=== PATIENT | female | born 1970 | race Caucasian/White ===

== ENCOUNTER 2025-07-18 11:54 | Inpatient (IN) | payer OTHER ==
[2025-07-18] VITALS (24 sets, daily range): BP systolic 117–193; BP diastolic 59–97; TEMP 97.9–98; O2SAT 91–100
[~2025-07-18] VITALS: Ht 149.9 cm; Wt 82.6 kg
[2025-07-18] MEDS ORDERED: ALBUTEROL FS 2.5 MG/3 ML VIAL.NEB ONE (12:12)
[2025-07-18] MEDS ORDERED: IPRATROPIUM NEB FS 0.5 MG/2.5 ML AMPUL.NEB ONE (12:12)
[2025-07-18] MEDS: IPRATROPIUM NEB FS 0.5 MG/2.5 ML AMPUL.NEB NEB ONE (12:28)
[2025-07-18] MEDS: ALBUTEROL FS 2.5 MG/3 ML VIAL.NEB NEB ONE (12:28)
[2025-07-18] MEDS ORDERED: NTG 50 MG/D5W250 ML BOTTL 250 ML IV ONE (12:29)
[2025-07-18] MEDS ORDERED: Magnesium 1GM/D5W 100ML PREMIX 100 ML IV ONE ×2 (12:29→13:16)
[2025-07-18 12:35] LABS: PLATELET COUNT (AUTO) 368 K/uL (150-450); RED BLOOD CELL COUNT(AUTO) 3.52 MIL/uL (4.0-5.2); RED CELL DISTRIBUTION WIDTH 17.7 % (11.5-15.0); WHITE BLOOD COUNT (AUTO) 12.8 K/uL (4.3-11.0)
[2025-07-18 12:43] LABS: CALCIUM, SERUM 8.6 mg/dL (8.5-10.1); SODIUM SERUM 135 mmol/L (136-145); UREA NITROGEN, BLOOD 42 mg/dL (7-18)
[2025-07-18] MEDS: Magnesium 1GM/D5W 100ML PREMIX 200 ML IV ONE (12:44)
[2025-07-18 12:54] LABS: CREATININE 8.2 mg/dL (0.6-1.3)
[2025-07-18] MEDS ORDERED: IV NS 0.9% 250 ML IV ONE (13:23)
[2025-07-18] MEDS ORDERED: IOHEXOL-350 100 ML VIAL IV ONE (13:23)
[2025-07-18] MEDS ORDERED: MAG HYDROX/AL HYDROX/SIMETH 30 ML UDC PO PRN (13:30)
[2025-07-18] MEDS ORDERED: ONDANSETRON HCL/PF 4 MG/2 ML VIAL IVP PRN (13:30)
[2025-07-18] MEDS ORDERED: MAGNESIUM HYDROXIDE 30 ML UDC PO PRN (13:30)
[2025-07-18] MEDS ORDERED: NTG 50 MG/D5W250 ML BOTTL 50 MG/250 ML BTL IV ONE (13:30)
[2025-07-18] MEDS ORDERED: ACETAMINOPHEN 325 MG TABLET PO PRN (13:30)
[2025-07-18] MEDS ORDERED: Z GUARD REMEDY 4 OZ OINT TP PRN (13:30)
[2025-07-18] MEDS: NTG 50 MG/D5W250 ML BOTTL 250 ML IV PRN ×2 (13:35→18:21)
[2025-07-18] MEDS ORDERED: CALC0.253 PO (14:18)
[2025-07-18] MEDS ORDERED: FEBU40TA3 PO (14:18)
[2025-07-18] MEDS ORDERED: AMLO-213 PO (14:18)
[2025-07-18] MEDS ORDERED: GLIP5TAB13 PO (14:18)
[2025-07-18] MEDS ORDERED: SUCR500T PO (14:18)
[2025-07-18 14:25] LABS: ABG BASE EXCESS 5.5 mmol/L (-2.0-3.0); ABG OXYGEN SATURATION 99.6 % (94.0-98.0); ABG PCO2 44.2 mmHg (32.0-45.0); ABG PH 7.451 (7.350-7.450); ABG PO2 455.6 mmHg (83.0-108.0); ABG TOTAL HEMOGLOBIN 11.2 G/dL (12.0-16.0); FRACTIONATED INSPIRED OXYGEN 100.0 %; SET RATE, BG 18.0; SITE, ABG RIGHT RADIAL
[2025-07-18] MEDS: CEFEPIME 1 GM in IV D5W 50 ML IV SCH (18:36)
[2025-07-18] MEDS ORDERED: DEXTROSE 50%-WATER 50 ML DISP.SYRIN IV PRN (19:00)
[2025-07-18] MEDS: BLOOD SUGAR DIAGNOSTIC 1 EACH STRIP IN SCH (22:51)
[2025-07-18] MEDS: INSULIN REGULAR, HUMAN 100 UNIT/ML 3 ML VIAL SQ PRN (22:53)
[2025-07-18] MEDS: HEPARIN SODIUM, PORCINE 5000 UNITS/1 ML VIAL SQ SCH (23:09)
[2025-07-19] VITALS (60 sets, daily range): BP systolic 130–192; BP diastolic 63–97; TEMP 97.8–98.9; O2SAT 87–100
[2025-07-19 04:40] LABS: PLATELET COUNT (AUTO) 331 K/uL (150-450); RED BLOOD CELL COUNT(AUTO) 2.98 MIL/uL (4.0-5.2); RED CELL DISTRIBUTION WIDTH 17.7 % (11.5-15.0); WHITE BLOOD COUNT (AUTO) 8.7 K/uL (4.3-11.0)
[2025-07-19 04:55] LABS: CALCIUM, SERUM 8.7 mg/dL (8.5-10.1); CREATININE 5.4 mg/dL (0.6-1.3); PHOSPHORUS 5.6 mg/dL (2.5-4.9); SODIUM SERUM 142.0 mmol/L (136-145); UREA NITROGEN, BLOOD 24.0 mg/dL (7-18)
[2025-07-19] MEDS: PANTOPRAZOLE 40 MG VIAL IV SCH (08:40)
[2025-07-19] MEDS: CALCITRIOL 0.25 MCG CAPSULE PO SCH (08:41)
[2025-07-19] MEDS: AMLODIPINE BESYLATE 10 MG TABLET PO SCH (08:41)
[2025-07-19] MEDS: ASPIRIN 81 MG TAB.CHEW PO SCH (08:50)
[2025-07-19] MEDS ORDERED: Medication Not On Formulary EA (Febuxostat 40 MG) PO SCH (09:00)
[2025-07-20] VITALS (38 sets, daily range): BP systolic 100–185; BP diastolic 57–90; TEMP 98–98.2; O2SAT 87–100
[2025-07-20 04:44] LABS: PLATELET COUNT (AUTO) 288 K/uL (150-450); RED BLOOD CELL COUNT(AUTO) 2.92 MIL/uL (4.0-5.2); RED CELL DISTRIBUTION WIDTH 17.7 % (11.5-15.0); WHITE BLOOD COUNT (AUTO) 8.0 K/uL (4.3-11.0)
[2025-07-20 04:57] LABS: ASPARTATE AMINOTRANSFERASE 11.0 U/L (15-37); CALCIUM, SERUM 8.6 mg/dL (8.5-10.1); CREATININE 4.4 mg/dL (0.6-1.3); PHOSPHORUS 4.1 mg/dL (2.5-4.9); SODIUM SERUM 142.0 mmol/L (136-145); TOTAL PROTEIN, SERUM 6.9 g/dL (6.4-8.2); UREA NITROGEN, BLOOD 16.0 mg/dL (7-18)
[2025-07-20 05:08] LABS: HEPATITIS B CORE AB, IgM Negative (Negative); HEPATITIS B CORE AB, TOTAL Negative (Negative)
[2025-07-20] MEDS: PANTOPRAZOLE 40 MG TABLET.DR PO SCH (08:20)
[2025-07-20] MEDS: METOPROLOL TARTRATE 50 MG TABLET PO SCH (11:44)
[2025-07-21 04:00] VITALS: BP 112/54; TEMP 98.1; O2SAT 97
[2025-07-21 08:00] VITALS: BP 125/58; TEMP 97.9; O2SAT 95
[2025-07-21 08:02] LABS: PLATELET COUNT (AUTO) 292 K/uL (150-450); RED BLOOD CELL COUNT(AUTO) 2.85 MIL/uL (4.0-5.2); RED CELL DISTRIBUTION WIDTH 18.4 % (11.5-15.0); WHITE BLOOD COUNT (AUTO) 7.6 K/uL (4.3-11.0)
[2025-07-21 08:42] LABS: ASPARTATE AMINOTRANSFERASE 9.0 U/L (15-37); CALCIUM, SERUM 8.4 mg/dL (8.5-10.1); CREATININE 7.2 mg/dL (0.6-1.3); PHOSPHORUS 5.2 mg/dL (2.5-4.9); SODIUM SERUM 140.0 mmol/L (136-145); TOTAL PROTEIN, SERUM 6.8 g/dL (6.4-8.2); UREA NITROGEN, BLOOD 33.0 mg/dL (7-18)
[2025-07-21] MEDS ORDERED: IOHEXOL-350 100 ML VIAL IV ONE (09:52)
[2025-07-21] MEDS ORDERED: IV NS 0.9% 250 ML IV ONE (09:52)
[2025-07-21] MEDS ORDERED: METOPROLOL TARTRATE INJ 5 MG/5 ML AMPUL ONE (10:15)
[2025-07-21] MEDS ORDERED: NITROGLYCERIN 0.4 MG/TAB BOTTLE ONE (10:15)
[2025-07-21] MEDS: METOPROLOL TARTRATE INJ 5 MG/5 ML AMPUL IVP PRN (10:21)
[2025-07-21] MEDS: NITROGLYCERIN 0.4 MG/TAB BOTTLE SL ONE (10:24)
[2025-07-21 11:54] VITALS: BP 120/56; TEMP 97.9; O2SAT 96
[2025-07-21 13:26] VITALS: BP 120/56
[2025-07-21] MEDS ORDERED: HYDR100T27 PO (13:46)
[2025-07-21] MEDS ORDERED: METO100T7 PO (13:46)
== END 2025-07-21 14:30 | disposition home or self-care (01) | DRG 280 ==
LOC: ER 11:56 → ICU 15:53 → TELE 07-20 22:43
PROVIDERS: ADMIT Nurse Practitioner Acute Care
PROC: 5A09457 Assistance with Respiratory Ventilation, 24-96 Consecutive Hours, Continuous Positive Airway Pressure (ICD-10-PCS; principal; 2025-07-18)
PROC: 5A1D70Z Performance of Urinary Filtration, Intermittent, Less than 6 Hours Per Day (ICD-10-PCS; 2025-07-18)
DX: I16.1 Hypertensive emergency (principal); I50.33 Acute on chronic diastolic (congestive) heart failure; I21.A1 Myocardial infarction type 2; J15.69 Pneumonia due to other Gram-negative bacteria; J96.01 Acute respiratory failure with hypoxia; N18.6 End stage renal disease; J90 Pleural effusion, not elsewhere classified; I13.2 Hypertensive heart and chronic kidney disease with heart failure and with stage 5 chronic kidney disease, or end stage renal disease; Z99.2 Dependence on renal dialysis; E11.22 Type 2 diabetes mellitus with diabetic chronic kidney disease; E66.9 Obesity, unspecified; J44.9 Chronic obstructive pulmonary disease, unspecified; Z79.84 Long term (current) use of oral hypoglycemic drugs; Z79.899 Other long term (current) drug therapy; Z68.37 Body mass index [BMI] 37.0-37.9, adult; E87.5 Hyperkalemia; E78.5 Hyperlipidemia, unspecified
CPT/HCPCS: 36415; 36600; 71045-TC; 75574; 80048-TC; 80053-TC; 82803-TC; 82962-TC; 83735-TC; 83880; 84100-TC; 84484-TC; 85025-TC; 85378-TC; 86704; 86705; 87081-TC; 87340; 90935-TC; 93307-TC; 94799-TC; 99082-TC; A4223; A6403; G0378; J0692; J1644; J1815; J2470; J2919; J3475; J3490; J7040; J7050; J7060; Q9967